=== PATIENT | male | born 1940 | race Caucasian/White ===

== ENCOUNTER → 2024-05-17 09:34 | Outpatient (REF) | payer OTHER, SELFPAY | LOC: HWRAD 09:34 | PROVIDERS: ATTENDING PHYSICIAN Physician Assistant; FAMILY PHYSICIAN Family Medicine; REFERRING PHYSICIAN Internal Medicine | DX: Z91.89 Other specified personal risk factors, not elsewhere classified (principal); Z80.0 Family history of malignant neoplasm of digestive organs | CPT/HCPCS: 74261 ==

== ENCOUNTER → 2024-06-10 15:14 | Outpatient (REF) | payer OTHER, SELFPAY | LOC: RAD 15:14 | PROVIDERS: ATTENDING PHYSICIAN Nurse Practitioner Family; FAMILY PHYSICIAN Family Medicine | DX: R05.1 Acute cough (principal); Z86.79 Personal history of other diseases of the circulatory system; R06.02 Shortness of breath | CPT/HCPCS: 71046; 93005 ==

== ENCOUNTER 2024-07-01 06:36 | Day surgery (SDC) | payer OTHER, SELFPAY | END 2024-07-01 12:59 | disposition home or self-care (01) | LOC: GI 06:36 | PROVIDERS: ATTENDING PHYSICIAN Internal Medicine | DX: Z12.11 Encounter for screening for malignant neoplasm of colon (principal); K64.4 Residual hemorrhoidal skin tags; K57.30 Diverticulosis of large intestine without perforation or abscess without bleeding; K64.8 Other hemorrhoids; K63.5 Polyp of colon; R19.7 Diarrhea, unspecified; Z80.0 Family history of malignant neoplasm of digestive organs | CPT/HCPCS: 45380; 88305 ==